=== PATIENT | female | born 1950 | race Caucasian/White ===

== ENCOUNTER 2017-09-17 23:42 | Emergency (ER) | payer MEDICARE ==
[~2017-09-17] VITALS: Ht 157.5 cm; Wt 91.6 kg
[~2017-09-17 23:42] MED LIST: BIMA2.5D OP; BRIM5DRO3 OP; BRIN10DR OP; CARI350T14 PO; FLUT1DIS IH; FURO20TA3 PO; GABA300C10 PO; LOVA20TA2 PO; METO25TA4 PO; MONT10TA9 PO; OLOP2.5D OP; POTA20TA14 PO; PROP10DR3 OP; TRAM50TA PO; WARF-35 PO
[2017-09-17 23:53] VITALS: BP 155/90
--- NOTE | 2017-09-17 23:57 | PCM.EKG ---
[facility] Test Date: 2017-09-17 Test Time: 23:52:44 Pat Name: REJI PADRON Department: Room: Gender: F Thoracic Medicine Physician: SANTINO : 1950 Requested By: MICHAEL AUGUSTE Order Number: [id number] Reading MD: Michael AUGUSTE Measurements Intervals [place] Rate: 69 P: 99 [place]: 196 QRS: -24 QRSD: 142 T: 137 QT: 446 QTc: 477 Interpretive Statements Normal sinus rhythm Left bundle branch block Abnormal ECG No previous ECG available for comparison Electronically Signed On 09-20-2017 6:27:20 CDT by Michael AUGUSTE Please click the below link to view image of tracing.
--- NOTE | 2017-09-18 00:03 | ER.PDOC ---
General Chief Complaint: Chest Pain-Cardiac Nature Stated Complaint: DIZZINESS Time seen by MD: 00:00 Source: patient Exam Limitations: no limitations History of Present Illness Initial Comments Dizziness this morning. Has had similar episode in the past. Occurred: just prior to arrival Severity: moderate Usually: walks w/o assistance Worsened By: movement of head Prior symptoms/Treatment: Similar symptoms previous, Recenly Seen, Treated by Doctor Allergies: Coded Allergies: morphine (Unverified Allergy, Unknown, 01/25/16) sulfamethoxazole (Verified Allergy, Unknown, 11/10/16) trimethoprim (Verified Allergy, Unknown, 11/10/16) Home Meds Reported Medications Fluticasone/Salmeterol (ADVAIR 100-50 DISKUS) 1 Each Disk.w.dev, 1 EACH IH BID 12/10/14 Carisoprodol (CARISOPRODOL) 350 Mg Tablet, 350 MG PO TID, TABLET 12/10/14 Metoprolol Tartrate 25MG (LOPRESSER 25MG) 25 Mg Tablet, 25 MG PO BID for HYPERTENSION, #60 TAB 12/10/14 Potassium Chloride (POTASSIUM CHLORIDE) 20 Meq Tab.er.prt, 1 TAB PO DAILY, #30 TAB 5 Refills 04/07/14 Furosemide (FUROSEMIDE) 20 Mg Tablet, 20 MG PO DAILY, TABLET 04/07/14 Montelukast Sodium (MONTELUKAST SODIUM) 10 Mg Tablet, 1 TAB PO HS, #30 TAB 5 Refills 04/07/14 Lovastatin (LOVASTATIN) 20 Mg Tablet, 10 MG PO, TABLET 04/07/14 Warfarin Sodium (WARFARIN SODIUM) 5 Mg Tablet, 1 TAB PO DAILY, #90 TAB 1 Refill 04/07/14 Gabapentin (GABAPENTIN) 300 Mg Capsule, 2 CAP PO HS, #90 CAP 5 Refills 04/07/14 Olopatadine Hcl (PATADAY) 2.5 Ml Drops, 1 DROP OP DAILY, #2.5 MILLILITER 3 Refills 04/07/14 Propylene Glycol/Peg 400 (SYSTANE ULTRA 0.4-0.3% EYE DRP) 10 Ml Drops, 1 DROP OP QID, #30 MILLILITER 4 Refills 04/07/14 Bimatoprost (LUMIGAN) 2.5 Ml Drops, 1 DROP OP HS, #7.5 MILLILITER 3 Refills 04/07/14 Brinzolamide (AZOPT) 10 Ml Drops.susp, 1 DROP OP BID, #15 MILLILITER 3 Refills 04/07/14 Brimonidine Tartrate (ALPHAGAN P) 5 Ml Drops, 1 DROP OP BID, #15 MILLILITER 3 Refills 04/07/14 Past Medical History Medical History: asthma, cardiac problems, congestive heart failure, COPD, high cholesterol, heart valve disease, hypertension Surgical History: cardiac cath, coronary bypass surgery, hysterectomy, knee, other LMP (females 10-50): hysterectomy Social History Smoking: non-smoker Alcohol Use: none Drug Use: none Review of Systems Constitutional: no symptoms reported Eyes: no symptoms reported Ears: dizziness Nose: no symptoms reported Mouth: no symptoms reported Throat: no symptoms reported Respiratory: no symptoms reported Cardiovascular: no symptoms reported Gastrointestinal: no symptoms reported All Other Systems: Reviewed and Negative Physical Exam General Appearance: alert, no distress EENT: nml eye inspection, PERRL, no nystagmus, nml ENT inspection Neck: supple Respiratory: no resp distress, breath sounds nml CVS: reg rate & rhythm, heart sounds.nml Abdomen: tenderness (mild epigastric) Skin: color nml, no rash, warm/dry Extremities: non-tender, nml ROM, no pedal edema Neuro/Psych: nml orientation, nml speech/cognition, nml mood/affect Cranial Nerves: nml as tested, no evidence of acute CVA Sensorimotor: nml motor, nml sensation Results/Orders Results/Orders Laboratory Tests Test 09/17/17 00:03 09/17/17 23:57 09/18/17 00:03 White Blood Count 4.7 10^3/uL (4.5-11.0) Red Blood Count 4.25 10^6/uL (4.00-5.20) Hemoglobin 12.4 g/dL (12.0-15.0) Hematocrit 38.3 % (36.0-46.0) Mean Corpuscular Volume 90.1 fL (78-100) Mean Corpuscular Hemoglobin 29.2 pg (26-34) Mean Corpuscular Hemoglobin Concent 32.4 g/dL (33-37) Red Cell Distribution Width 14.3 % (11.5-14.5) Platelet Count 201 10^3/uL (150-400) Mean Platelet Volume 11.2 fL (7.8-11.0) Neutrophils (%) (Auto) 72.2 % (41.0-85.0) Lymphocytes (%) (Auto) 14.6 % (24.0-44.0) Monocytes (%) (Auto) 11.3 % (5.0-12.0) Neutrophils # (Auto) 3.4 10^3/uL (1.8-7.7) Lymphocytes # (Auto) 0.7 10^3/uL (1.0-4.8) Monocytes # (Auto) 0.5 10^3/uL (0.3-0.8) Absolute Immature Granulocyte (auto 0.02 10^3 u/L (0-2) Eosinophils % 1.1 % (0.0-5.0) Basophils % 0.4 % (0.0-0.2) Basophils # 0.0 10^3/uL (0.0-0.1) Eosinophil Count 0.1 10^3/uL (0.0-0.2) Prothrombin Time 20.6 SEC (9.8-11.9) Prothrombin Time INR (Non-Therap) 2.1 Activated Partial Thromboplast Time 28.5 SEC (24.67-30.72) Sodium Level 139 mmol/L (132-145) Potassium Level 3.8 mmol/L (3.6-5.2) Chloride Level 104.0 mmol/L (96-109) Carbon Dioxide Level 28.4 mmol/L (20.0-32) Anion Gap 10.4 Blood Urea Nitrogen 25 mg/dL (7-18) Creatinine 1.06 mg/dL (0.59-1.40) Estimated GFR () 62.4 (>/=60) BUN/Creatinine Ratio 23.0 Glucose Level 127 mg/dL (70-110) Calcium Level 9.7 mg/dL (8.4-10.5) Total Bilirubin 0.5 mg/dL (0.2-1.0) Aspartate Amino Transf (AST/SGOT) 20 U/L (0-35) Alanine Aminotransferase (ALT/SGPT) 18 U/L (12-78) Alkaline Phosphatase 92 U/L (50-136) Troponin I < 0.02 ng/mL (0.00-0.05) Total Protein 7.6 g/dL (6.4-8.2) Albumin 4.1 g/dL (3.4-5.0) Globulin 3.5 Lipase 118 U/L (114-286) Percent Immature Gran (Cell Imm) 0.40 % (0.00-0.50) Helicobacter pylori Screen NEGATIVE (NEGATIVE) Urine Collection Type CCMS Urine Color YELLOW (YELLOW) Urine Appearance HAZY (CLEAR) Urine Bilirubin NEGATIVE MG/DL (NEGATIVE) Urine Ketones NEGATIVE (NEGATIVE) Urine Specific [place] 1.025 (1.005-1.035) Urine pH 5 (5.0-6.0) Urine Protein NEGATIVE (NEGATIVE) Urine Urobilinogen NORMAL (NEGATIVE) Urine Nitrate NEGATIVE (NEGATIVE) Urine Leukocyte Esterase 100/ul 1+ (NEGATIVE) Urine Blood NEGATIVE (NEGATIVE) Urine RBC NONE SEEN RBC/HPF (NONE Urine WBC 5-10 WBC/HPF (0-2) Urine Squamous Epithelial Cells MODERATE #/HPF (FEW) Urine Bacteria RARE (NONE SEEN) Urine Other MUCUS 2+ #/HPF Urine Glucose NORMAL (NEGATIVE) Total Creatine Kinase 49 U/L (26-192) Creatine Kinase MB 0.6 ng/mL (0.5-3.6) Pro-B-Type Natriuretic Peptide 242 pg/mL (0-125) Administered Medications Medications (Trade) Dose Ordered Sig/Rashawn Route PRN Reason Start Time Stop Time Status Last Admin Dose Admin Meclizine HCl (Antivert) 25 mg STAT STAT PO 09/18/17 00:38 09/18/17 00:39 DC 09/18/17 00:48 Progress Progress She denies any chest pain. Feels better after taking Meclizine. Patient given option of observation but she declined because she feels better. EKG/XRAY/CT/US EKG Comments: LBBB XRAY: chest (Nothing acute) CT Comments: CT head shows nothing acute, CT abd/pelvis shows hiatal hernia and constipa Departure Time of Disposition: 02:01 Disposition: 01 HOME, SELF-CARE Impression: Primary Impression: Vertigo Additional Impressions: UTI (urinary tract infection) Constipation Hiatal hernia Condition: Improved Referrals: JESUS HOWARD FLEET MANAGER (PCP) PRIMARY CARE PROVIDER Additional Instructions: Meclizine Cipro Magnesium Citrate OTC as directed F/U with PCP in 2-3 days Duration or Time Spent with Pa: 90 mins Problem Qualifiers Additional Impressions: UTI (urinary tract infection) Urinary tract infection type: site unspecified Hematuria presence: without hematuria Qualified Codes: N39.0 - Urinary tract infection, site not specified Constipation Constipation type: unspecified constipation type Qualified Codes: K59.00 - Constipation, unspecified MICHAEL AUGUSTE MD Sep 18, 2017 00:03
[2017-09-18 00:36] LABS: BASOPHIL % 0.4 % (0.0-0.2); EOSINOPHIL # 0.1 10^3/uL (0.0-0.2); EOSINOPHIL % 1.1 % (0.0-5.0); HEMOGLOBIN 12.4 g/dL (12.0-15.0); LYMPHOCYTES # 0.7 10^3/uL (1.0-4.8); LYMPHOCYTES % 14.6 % (24.0-44.0); MEAN CELL HGB 29.2 pg (26-34); MEAN CELL HGB CONCENTRATION 32.4 g/dL (33-37); MEAN CORP VOLUME 90.1 fL (78-100); MEAN PLATELET VOLUME 11.2 fL (7.8-11.0); MONOCYTES # 0.5 10^3/uL (0.3-0.8); MONOCYTES % 11.3 % (5.0-12.0); NEUTROPHIL # 3.4 10^3/uL (1.8-7.7); NEUTROPHILS % 72.2 % (41.0-85.0); RED CELL DISTRIBUTION WIDTH 14.3 % (11.5-14.5); WHITE BLOOD CELL 4.7 10^3/uL (4.5-11.0)
[2017-09-18 00:37] LABS: ALANINE AMINOTRANSFERASE(ML) 18 U/L (12-78); ALKALINE PHOSPHATASE 92 U/L (50-136); ASPARTATE AMINO TRANSFERASE 20 U/L (0-35); CALCIUM 9.7 mg/dL (8.4-10.5); CARBON DIOXIDE 28.4 mmol/L (20.0-32); GLUCOSE 127 mg/dL (70-110)
[2017-09-18] MEDS ORDERED: ANTIVERT PO STA (00:38)
--- NOTE | 2017-09-18 00:41 | DIREP ---
PROCEDURE:CT HEAD OR BRAIN W/O CONTRAST COMPARISON:[facility], CT, CT-BRAIN WO CONTRAST, 07/26/2012, 10:19 AM. INDICATIONS:Dizziness TECHNIQUE:CT images were created without intravenous contrast. The study was reviewed on brain, subdural and bone windows. FINDINGS: VENTRICLES:Moderate ventriculomegaly. Mild periventricular white matter changes which may be secondary to small vessel disease and old aging. CEREBRUM:Normal cerebral morphology with appropriate long white matter differentiation. No acute infarct, bleed or mass lesion is seen. No acute or chronic epidural, subdural or subarachnoid hemorrhage is seen. No edema, midline shift or increased intracranial pressure is seen. CEREBELLUM:No posterior fossa infarcts or mass lesions are seen. BRAINSTEM:Negative. BASAL CISTERNS:Negative. HEMORRHAGE:No MASS LESION:No ACUTE INFARCT:No SKULL:Normal. SINUSES:Normal. OTHER:A focal area of hyperdensity along the lateral aspects of the right orbit. The hyperdense area measures 1.2 x 0.7 cm in size. This is probably unchanged since last examination of 07/26/2012. CONCLUSION:Moderate ventriculomegaly with mild atrophy. No acute infarct, bleed or mass lesion is seen. Dictated by: Deepak Ford MD on 09/18/2017 at 00:37 AM
--- NOTE | 2017-09-18 00:45 | DIREP ---
PROCEDURE:CT ABDOMEN/PELVIS W/O CONTRAST COMPARISON:[facility], CT, CT ABD/PELVIS W/O, 12/10/2014, 09:33 PM. INDICATIONS:upper abdominal discomfort/pain TECHNIQUE:Axial images were created through the abdomen and pelvis without intravenous contrast material. No oral contrast was administered. Sagittal and coronal reconstructions were performed from source images. The study was reviewed on abdominal, lung, liver and bone windows. FINDINGS: LUNG BASES:Normal. No visible pulmonary or pleural disease. A prosthetic mitral valve noted. Moderate to large size hiatal hernia LIVER:Normal. No significant liver lesions are identified. BILIARY:Normal. No visible dilatation or calcification. PANCREAS:Normal. No lesion, fluid collection, ductal dilatation, or atrophy. Fat atrophy of pancreas. SPLEEN:Normal. No enlargement or focal lesion. ADRENALS:Normal. No mass or enlargement. URINARY TRACT:Normal. No focal lesions or hydronephrosis. An exophytic cyst involving the midpole of the left kidney measuring 2.1 x 1.7 cm in size. AORTA/VASCULAR:Normal. No aneurysm. RETROPERITONEUM:Normal. No mass or adenopathy. BOWEL/MESENTERY: Moderate-sized hiatal hernia. No small bowel obstruction is seen. There is significant retained fecal material throughout the colon. The appendix is not visualized in the pericecal region. No pericecal inflammatory changes, diverticulitis, free air or free fluid is seen. ABDOMINAL WALL:Normal. No mass or hernia. PELVIC ORGANS:The uterus is surgically absent. BONES:Normal for age. No bony lesion or acute fracture. No acute compression fractures are seen. Ventral osteophytes in the thoracic and the upper lumbar spine. Minimal degenerative anterolisthesis of L4 on L5 and retrolisthesis of L1 on L2. OTHER:Negative. CONCLUSION: A moderate to large size hiatal hernia containing the stomach. No small bowel obstruction is seen. Moderate constipation with retained gas and fecal matter in the colon. No evidence for cholelithiasis, cholecystitis or pancreatitis. A simple renal cyst involving the left kidney, no radiopaque renal stones or hydronephrosis is seen. Status post hysterectomy. Dictated by: Deepak Ford MD on 09/18/2017 at 00:40 AM
--- NOTE | 2017-09-18 00:51 | DIREP ---
PROCEDURE:CHEST 1 VIEW COMPARISON:None. INDICATIONS:Dizziness FINDINGS: LUNGS/PLEURA:No significant pulmonary parenchymal abnormalities. No effusions. The lungs are clear. No pneumonia, heart failure or effusions are seen. VASCULATURE:Normal. Unremarkable pulmonary vasculature. CARDIAC:Cardiomegaly. Prosthetic mitral valve. Status post midline sternotomy. MEDIASTINUM:Normal. No visible mass or adenopathy. BONES:Normal. No fracture or visible bony lesion. OTHER:Moderate-sized hiatal hernia. CONCLUSION:Prosthetic mitral valve. Status post midline sternotomy with mild cardiomegaly. No active disease. Dictated by: Deepak Ford MD on 09/18/2017 at 00:49 AM
[2017-09-18 00:59] LABS: BILIRUBIN,URINE NEGATIVE (NEGATIVE); UROBILINOGEN,URINE NORMAL (NEGATIVE)
[2017-09-18 01:00] LABS: APPEARANCE,URINE HAZY (CLEAR); UA COLOR YELLOW (YELLOW)
[2017-09-18 02:30] VITALS: BP 155/90
== END 2017-09-18 02:26 | disposition home or self-care (01) ==
LOC: EDBD 23:42 → ER 23:42
DX: N39.0 Urinary tract infection, site not specified (principal); R42 Dizziness and giddiness; K59.00 Constipation, unspecified; K44.9 Diaphragmatic hernia without obstruction or gangrene; E78.00 Pure hypercholesterolemia, unspecified; I11.0 Hypertensive heart disease with heart failure; I50.9 Heart failure, unspecified; J44.9 Chronic obstructive pulmonary disease, unspecified; Z79.01 Long term (current) use of anticoagulants; Z88.2 Allergy status to sulfonamides; Z88.5 Allergy status to narcotic agent; Z90.710 Acquired absence of both cervix and uterus; Z95.1 Presence of aortocoronary bypass graft
CPT/HCPCS: 36415; 70450; 71045; 74176; 80053; 81000; 82550; 82553; 83690; 83880; 84484; 85025; 85610; 85730; 86677; 87077; 87086; 87186; 93005; 99285

== ENCOUNTER 2018-11-13 13:07 | Emergency (ER) | payer MEDICARE ==
[~2018-11-13] VITALS: Ht 157.5 cm; Wt 98.0 kg
[2018-11-13 13:28] VITALS: BP 118/66
--- NOTE | 2018-11-13 13:38 | ER.PDOC ---
General Chief Complaint: Dizziness Stated Complaint: DIZZY TRAVEL OUT OF US: No Time seen by MD: 13:33 Source: patient Exam Limitations: no limitations History of Present Illness Timing/Duration: 1 week Severity: mild Modifying Factors: improves with movement, improves with rest Associated Symptoms: denies symptoms Allergies: Coded Allergies: morphine (Unverified Allergy, Unknown, 01/25/16) sulfamethoxazole (Verified Allergy, Unknown, 11/10/16) trimethoprim (Verified Allergy, Unknown, 11/10/16) Home Meds Reported Medications Fluticasone/Salmeterol (ADVAIR 100-50 DISKUS) 1 Each Disk.w.dev, 1 EACH IH BID 12/10/14 Carisoprodol (CARISOPRODOL) 350 Mg Tablet, 350 MG PO TID, TABLET 12/10/14 Metoprolol Tartrate 25MG (LOPRESSER 25MG) 25 Mg Tablet, 25 MG PO BID for HYPERTENSION, #60 TAB 12/10/14 Potassium Chloride (POTASSIUM CHLORIDE) 20 Meq Tab.er.prt, 1 TAB PO DAILY, #30 TAB 5 Refills 04/07/14 Furosemide (FUROSEMIDE) 20 Mg Tablet, 20 MG PO DAILY, TABLET 04/07/14 Montelukast Sodium (MONTELUKAST SODIUM) 10 Mg Tablet, 1 TAB PO HS, #30 TAB 5 Refills 04/07/14 Lovastatin (LOVASTATIN) 20 Mg Tablet, 10 MG PO, TABLET 04/07/14 Warfarin Sodium (WARFARIN SODIUM) 5 Mg Tablet, 1 TAB PO DAILY, #90 TAB 1 Refill 04/07/14 Gabapentin (GABAPENTIN) 300 Mg Capsule, 2 CAP PO HS, #90 CAP 5 Refills 04/07/14 Olopatadine Hcl (PATADAY) 2.5 Ml Drops, 1 DROP OP DAILY, #2.5 MILLILITER 3 Refills 04/07/14 Propylene Glycol/Peg 400 (SYSTANE ULTRA 0.4-0.3% EYE DRP) 10 Ml Drops, 1 DROP OP QID, #30 MILLILITER 4 Refills 04/07/14 Bimatoprost (LUMIGAN) 2.5 Ml Drops, 1 DROP OP HS, #7.5 MILLILITER 3 Refills 04/07/14 Brinzolamide (AZOPT) 10 Ml Drops.susp, 1 DROP OP BID, #15 MILLILITER 3 Refills 04/07/14 Brimonidine Tartrate (ALPHAGAN P) 5 Ml Drops, 1 DROP OP BID, #15 MILLILITER 3 Refills 04/07/14 Past Medical History Medical History: cardiac problems, high cholesterol Surgical History: hysterectomy LMP (females 10-50): postmenopause Social History Smoking: non-smoker Alcohol Use: none Drug Use: none Reviewed Nursing Reviewed: Vital Signs, Abn. Noted Review of Systems All Other Systems: Reviewed and Negative Physical Exam General Appearance: No Apparent Distress EENT: eyes nml inspection Neck: Non-Tender CVS: murmur Gastrointestinal: Normal Bowel Sounds Back: Normal Inspection Extremities: Normal Range of Motion Neurologic/Psychiatric: screening tech II-XII NML as Tested Skin: Normal Color Lymphatic: No Adenopathy Results/Orders Results/Orders Orders - SHILOH CHIANG MD Cbc With Auto Diff (11/13/18 13:32) Comprehensive Metabolic Panel (11/13/18 13:32) Creatine Kinase (11/13/18 13:32) Troponin I (11/13/18 13:32) Probnp B-Type Intelligence Clerk (11/13/18 13:32) PT (11/13/18 13:32) Partial Thromboplastin Time. (11/13/18 13:32) Helicobacter Pylori (11/13/18 13:32) D-Dimer (11/13/18 13:32) Xr Chest 1v (11/13/18 13:32) Ekg-Routine (11/13/18 13:32) Urinalysis (11/13/18 13:32) Urine Culture (11/13/18 14:45) Vital Signs Date Time Temp Pulse Resp B/P (MAP) Pulse Ox O2 Delivery O2 Flow Rate FiO2 11/13/18 14:38 97.4 65 16 141/71 (94) 11/13/18 13:28 97.4 66 16 Room Air 11/13/18 13:28 97.4 66 16 118/66 (83) 98 Room Air 11/13/18 13:28 97.4 66 16 Laboratory Tests Test 11/13/18 13:42 11/13/18 14:45 White Blood Count 4.5 10^3/uL (4.5-11.0) Red Blood Count 4.15 10^6/uL (4.00-5.20) Hemoglobin 11.3 g/dL (12.0-15.0) L Hematocrit 36.2 % (36.0-46.0) Mean Corpuscular Volume 87.2 fL (78-100) Mean Corpuscular Hemoglobin 27.2 pg (26-34) Mean Corpuscular Hemoglobin Concent 31.2 g/dL (33-37) L Red Cell Distribution Width 16.0 % (11.5-14.5) H Platelet Count 208 10^3/uL (150-400) Mean Platelet Volume 10.3 fL (7.8-11.0) Neutrophils (%) (Auto) 72.3 % (41.0-85.0) Lymphocytes (%) (Auto) 15.5 % (24.0-44.0) L Monocytes (%) (Auto) 9.7 % (5.0-12.0) Neutrophils # (Auto) 3.2 10^3/uL (1.8-7.7) Lymphocytes # (Auto) 0.7 10^3/uL (1.0-4.8) L Monocytes # (Auto) 0.4 10^3/uL (0.3-0.8) Absolute Immature Granulocyte (auto 0.01 10^3 u/L (0-2) Immature Granulocytes % 0.20 % (0.00-0.50) Eosinophils % 1.6 % (0.0-5.0) Basophils % 0.7 % (0.0-0.2) H Basophils # 0.0 10^3/uL (0.0-0.1) Eosinophil Count 0.1 10^3/uL (0.0-0.2) Prothrombin Time 25.9 SEC (9.4-11.5) H Prothrombin Time INR (Non-Therap) 2.6 PTT 33.2 SEC (24.67-30.72) D-Dimer 0.47 mg/L (0.19-0.49) Sodium Level 142 mmol/L (132-145) Potassium Level 4.4 mmol/L (3.6-5.2) Chloride Level 105.0 mmol/L (96-109) Carbon Dioxide Level 27.4 mmol/L (20.0-32) Anion Gap 14.0 Blood Urea Nitrogen 21 mg/dL (7-18) H Creatinine 1.09 mg/dL (0.59-1.40) Estimated GFR () 60.2 (>/=60) BUN/Creatinine Ratio 19.0 Glucose Level 101 mg/dL (70-110) Calcium Level 8.7 mg/dL (8.4-10.5) Total Bilirubin 0.6 mg/dL (0.2-1.0) Aspartate Amino Transferase (AST) 22 U/L (0-35) Alanine Aminotransferase (ALT) 13 U/L (12-78) Alkaline Phosphatase 84 U/L (50-136) Total Creatine Kinase 43 U/L (26-192) Troponin I < 0.02 ng/mL (0.00-0.05) Pro-B-Type Natriuretic Peptide 378 pg/mL (0-125) H Total Protein 7.1 g/dL (6.4-8.2) Albumin 3.9 g/dL (3.4-5.0) Globulin 3.2 Helicobacter pylori Screen NEGATIVE (NEGATIVE) Urine Collection Type VOID Urine Color YELLOW (YELLOW) Urine Appearance HAZY (CLEAR) H Urine Bilirubin NEGATIVE MG/DL (NEGATIVE) Urine Ketones NEGATIVE (NEGATIVE) Urine Specific [place] 1.015 (1.005-1.035) Urine pH 6.5 (5.0-6.0) Urine Protein 15 mg/dL (NEGATIVE) H Urine Urobilinogen 1.0 (NEGATIVE) H Urine Nitrate POSITIVE (NEGATIVE) Urine Leukocyte Esterase 500/uL 2+ (NEGATIVE) Urine Blood 10 TR (NEGATIVE) H Urine WBC WBC/HPF (0-2) Urine Glucose NORMAL (NEGATIVE) Urine Comment COMMENT: Progress Progress not orthosttatic EKG/XRAY/CT/US EKG: NSR, LBBB Course Duration or Total Time Spent w: 90 mins Vitals & review Data Vital Sign - Last 24 Hours 11/13/18 11/13/18 11/13/18 11/13/18 13:28 13:28 13:28 14:38 Temp 97.4 97.4 97.4 97.4 Pulse 66 66 66 65 Resp 16 16 16 16 B/P (MAP) 118/66 (83) 141/71 (94) Pulse Ox 98 O2 Delivery Room Air Room Air Laboratory Tests Test 11/13/18 13:42 11/13/18 14:45 White Blood Count 4.5 10^3/uL Red Blood Count 4.15 10^6/uL Hemoglobin 11.3 g/dL Hematocrit 36.2 % Mean Corpuscular Volume 87.2 fL Mean Corpuscular Hemoglobin 27.2 pg Mean Corpuscular Hemoglobin Concent 31.2 g/dL Red Cell Distribution Width 16.0 % Platelet Count 208 10^3/uL Mean Platelet Volume 10.3 fL Neutrophils (%) (Auto) 72.3 % Lymphocytes (%) (Auto) 15.5 % Monocytes (%) (Auto) 9.7 % Neutrophils # (Auto) 3.2 10^3/uL Lymphocytes # (Auto) 0.7 10^3/uL Monocytes # (Auto) 0.4 10^3/uL Absolute Immature Granulocyte (auto 0.01 10^3 u/L Immature Granulocytes % 0.20 % Eosinophils % 1.6 % Basophils % 0.7 % Basophils # 0.0 10^3/uL Eosinophil Count 0.1 10^3/uL Prothrombin Time 25.9 SEC Prothrombin Time INR (Non-Therap) 2.6 Activated Partial Thromboplast Time 33.2 SEC D-Dimer 0.47 mg/L Sodium Level 142 mmol/L Potassium Level 4.4 mmol/L Chloride Level 105.0 mmol/L Carbon Dioxide Level 27.4 mmol/L Anion Gap 14.0 Blood Urea Nitrogen 21 mg/dL Creatinine 1.09 mg/dL Estimated GFR () 60.2 BUN/Creatinine Ratio 19.0 Glucose Level 101 mg/dL Calcium Level 8.7 mg/dL Total Bilirubin 0.6 mg/dL Aspartate Amino Transf (AST/SGOT) 22 U/L Alanine Aminotransferase (ALT/SGPT) 13 U/L Alkaline Phosphatase 84 U/L Total Creatine Kinase 43 U/L Troponin I < 0.02 ng/mL Pro-B-Type Natriuretic Peptide 378 pg/mL Total Protein 7.1 g/dL Albumin 3.9 g/dL Globulin 3.2 Helicobacter pylori Screen NEGATIVE Urine Collection Type VOID Urine Color YELLOW Urine Appearance HAZY Urine Bilirubin NEGATIVE MG/DL Urine Ketones NEGATIVE Urine Specific [place] 1.015 Urine pH 6.5 Urine Protein 15 mg/dL Urine Urobilinogen 1.0 Urine Nitrate POSITIVE Urine Leukocyte Esterase 500/uL 2+ Urine Blood 10 TR Urine WBC WBC/HPF Urine Glucose NORMAL Urine Comment COMMENT: Sepsis Infection Criteria Pres: None O2 Sat by Pulse Oximetry: 98 Departure Time of Disposition: 15:22 Disposition: 01 HOME, SELF-CARE Impression: Primary Impression: Medication adverse effect Condition: Stable Referrals: JESUS HOWARD COOLER CONVEYOR LOADER (PCP) PRIMARY CARE PROVIDER Duration or Time Spent with Pa: 20 m SHILOH CHIANG MD Nov 13, 2018 13:38
[2018-11-13 13:50] LABS: BASOPHIL % 0.7 % (0.0-0.2); EOSINOPHIL # 0.1 10^3/uL (0.0-0.2); EOSINOPHIL % 1.6 % (0.0-5.0); HEMOGLOBIN 11.3 g/dL (12.0-15.0); LYMPHOCYTES # 0.7 10^3/uL (1.0-4.8); LYMPHOCYTES % 15.5 % (24.0-44.0); MEAN CELL HGB 27.2 pg (26-34); MEAN CELL HGB CONCENTRATION 31.2 g/dL (33-37); MEAN CORP VOLUME 87.2 fL (78-100); MEAN PLATELET VOLUME 10.3 fL (7.8-11.0); MONOCYTES # 0.4 10^3/uL (0.3-0.8); MONOCYTES % 9.7 % (5.0-12.0); NEUTROPHIL # 3.2 10^3/uL (1.8-7.7); NEUTROPHILS % 72.3 % (41.0-85.0); WHITE BLOOD CELL 4.5 10^3/uL (4.5-11.0)
[2018-11-13 14:12] LABS: CARBON DIOXIDE 27.4 mmol/L (20.0-32)
[2018-11-13 14:13] LABS: ALANINE AMINOTRANSFERASE(ML) 13 U/L (12-78); ALKALINE PHOSPHATASE 84 U/L (50-136); ASPARTATE AMINO TRANSFERASE 22 U/L (0-35); CALCIUM 8.7 mg/dL (8.4-10.5); GLUCOSE 101 mg/dL (70-110)
--- NOTE | 2018-11-13 14:14 | DIREP ---
PROCEDURE:CHEST 1 VIEW COMPARISON:[facility], CR, XRAY CHEST SINGLE VW, 09/18/2017, 00:25 AM. INDICATIONS:dyspnea, cough FINDINGS: LUNGS/PLEURA:Mild chronic interstitial changes. No infiltrate or pleural effusion. CARDIAC:Stable cardiomegaly, mitral valve prosthesis and normal pulmonary vascularity. MEDIASTINUM:Hiatal hernia. BONES:Normal. OTHER:No additional findings. CONCLUSION:No acute cardiopulmonary process or significant change. Dictated by: Genet Gaines MD on 11/13/2018 at 02:12 PM
--- NOTE | 2018-11-13 14:18 | PCM.EKG ---
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
[2018-11-13 14:38] VITALS: BP 141/71
[2018-11-13 14:58] LABS: APPEARANCE,URINE HAZY (CLEAR); BILIRUBIN,URINE NEGATIVE (NEGATIVE); UA COLOR YELLOW (YELLOW)
[2018-11-13 15:05] VITALS: BP 120/68
== END 2018-11-13 15:15 | disposition home or self-care (01) ==
LOC: ER 13:07
DX: R42 Dizziness and giddiness (principal); T50.905A Adverse effect of unspecified drugs, medicaments and biological substances, initial encounter; E78.00 Pure hypercholesterolemia, unspecified; Z90.710 Acquired absence of both cervix and uterus; Z88.5 Allergy status to narcotic agent; Z88.2 Allergy status to sulfonamides; Z88.1 Allergy status to other antibiotic agents; Z79.899 Other long term (current) drug therapy; Z79.01 Long term (current) use of anticoagulants; Y92.89 Other specified places as the place of occurrence of the external cause
CPT/HCPCS: 36415; 71045; 80053; 81002; 82550; 83880; 84484; 85025; 85379; 85610; 85730; 86677; 87086; 93005; 99285

== ENCOUNTER → 2019-03-13 | Outpatient (CLI) | payer MEDICARE | END | disposition home or self-care (01) | LOC: LAB 11:21 | PROVIDERS: ATTEND Internal Medicine Gastroenterology | DX: K29.40 Chronic atrophic gastritis without bleeding (principal); I11.0 Hypertensive heart disease with heart failure; I50.9 Heart failure, unspecified; Z90.710 Acquired absence of both cervix and uterus; Z95.2 Presence of prosthetic heart valve; Z90.49 Acquired absence of other specified parts of digestive tract; Z88.5 Allergy status to narcotic agent; Z79.899 Other long term (current) drug therapy | CPT/HCPCS: 36415; 82607 ==

== ENCOUNTER → 2019-05-14 | Outpatient (CLI) | payer MEDICARE ==
[2019-05-14 11:07] LABS: BASOPHIL % 0.9 % (0.0-0.2); EOSINOPHIL % 0.9 % (0.0-5.0); LYMPHOCYTES # 0.49 10^3/uL1 (1.0-4.8); LYMPHOCYTES % 10.5 % (24.0-44.0); MONOCYTES # 0.3 10^3/uL (0.3-0.8); MONOCYTES % 6.7 % (5.0-12.0); NEUTROPHIL # 3.8 10^3/uL (1.8-7.7); NEUTROPHILS % 80.8 % (41.0-85.0); PLATELET COUNT 171 10^3/uL (150-400)
[2019-05-14 11:37] LABS: CALCIUM 9.2 mg/dL (8.4-10.5); CARBON DIOXIDE 30.9 mmol/L (20.0-32)
[2019-05-14 15:15] LABS: BASOPHIL 3 % (0-2); DIFFERENTIAL COMMENT NORMAL; LYMPHOCYTE 16 % (25-36); MONOCYTE 9 % (3-9); SEGMENTED NEUTROPHILS 72 % (31-76)
== END | disposition home or self-care (01) ==
LOC: LAB 10:46
PROVIDERS: ATTEND Nurse Practitioner Family
DX: I11.0 Hypertensive heart disease with heart failure (principal); I50.22 Chronic systolic (congestive) heart failure; D50.9 Iron deficiency anemia, unspecified; D51.0 Vitamin B12 deficiency anemia due to intrinsic factor deficiency
CPT/HCPCS: 36415; 80053; 82607; 82746; 83550; 83880; 84439; 84443; 85025

== ENCOUNTER → 2019-08-30 | Outpatient (CLI) | payer MEDICARE ==
[~2019-08-30] MED LIST changes: +MONT10TA11 PO; -MONT10TA9 PO; -OLOP2.5D OP; +OLOP2.5D12 OP
--- NOTE | 2019-08-30 12:55 | DIREP ---
PROCEDURE:XRAY SHOULDER MIN 2 VWS-RT COMPARISON:None. INDICATIONS:PAIN FINDINGS: BONES:Normal. JOINTS:Normal glenohumeral and acromioclavicular joints. No evidence for dislocation. SOFT TISSUES:Normal. OTHER:Valve replacement partially visualized. Median sternotomy wires. CONCLUSION:Degenerative changes in the right shoulder. Dictated by: Hua Ramirez MD on 08/30/2019 at 12:49 PM
== END | disposition home or self-care (01) ==
LOC: RAD 08:22
PROVIDERS: ATTEND Nurse Practitioner Family
DX: M25.511 Pain in right shoulder (principal)
CPT/HCPCS: 73030-RT

== ENCOUNTER → 2019-08-30 | Outpatient (CLI) | payer MEDICARE | END | disposition home or self-care (01) | LOC: LAB 08:46 | PROVIDERS: ATTEND Nurse Practitioner Family | DX: N39.0 Urinary tract infection, site not specified (principal) | CPT/HCPCS: 87077; 87086; 87186 ==

== ENCOUNTER → 2020-01-25 | Outpatient (CLI) | payer MEDICARE ==
--- NOTE | 2020-01-25 09:07 | DIREP ---
PROCEDURE:CHEST 1 VIEW COMPARISON:None. INDICATIONS:ANGINA PECTORIS FINDINGS: LUNGS/PLEURA:No significant pulmonary parenchymal abnormalities. No effusions. VASCULATURE:Normal. Unremarkable pulmonary vasculature. CARDIAC:Previous mitral valve replacement. MEDIASTINUM:Calcification in the aortic arch. Large hiatal hernia. BONES:Normal. No fracture or visible bony lesion. OTHER:Negative. CONCLUSION:No acute cardiopulmonary abnormalities. No change from previous study. Dictated by: Klaus Dong M.D. on 01/25/2020 at 09:02 AM
== END | disposition home or self-care (01) ==
LOC: RAD 08:45
PROVIDERS: ATTEND Internal Medicine Cardiovascular Disease
DX: I20.8 Other forms of angina pectoris (principal)
CPT/HCPCS: 71045